=== PATIENT | female | born 1955 | race Caucasian/White ===

== ENCOUNTER 2018-09-15 11:03 | Emergency (ER) | payer SELFPAY ==
[2018-09-15] MEDS ORDERED: Lidocaine 1% w/Epinephrine 1:100K 20 ML VIAL ONE (11:44)
--- NOTE | 2018-09-15 12:22 | CT ---
CT BRAIN NONCONTRAST: HISTORY: 63-year-old female status post acute head trauma due to fall from ladder. FINDINGS: There is no midline shift or any other mass effect. There is no evidence of acute intracranial hemor rhage, large cortical infarct, obstructive hydrocephalus, or extraaxial fluid collection. The calvar ium is intact. IMPRESSION: No acute intracranial findings. jn [] POS: [facility]
[2018-09-15] MEDS ORDERED: Adacel (T-DAP) 0.5 ML VIAL ONE (12:41)
== END 2018-09-15 13:07 | disposition home or self-care (01) ==
LOC: ERS 11:03
DX: S01.01XA Laceration without foreign body of scalp, initial encounter (principal); K21.9 Gastro-esophageal reflux disease without esophagitis; E03.9 Hypothyroidism, unspecified; Z23 Encounter for immunization; W20.8XXA Other cause of strike by thrown, projected or falling object, initial encounter
CPT/HCPCS: 12002; 70450; 90471; 90715; J2001

== ENCOUNTER 2021-12-06 08:43 | Outpatient (CLI) | payer MEDICARE | END 2021-12-06 08:44 | disposition home or self-care (01) | LOC: BICMAMMO 08:43 | PROVIDERS: ATTEND Internal Medicine | DX: Z12.31 Encounter for screening mammogram for malignant neoplasm of breast (principal); Z80.3 Family history of malignant neoplasm of breast; Z98.82 Breast implant status | CPT/HCPCS: 77063; 77067 ==

== ENCOUNTER 2023-01-13 13:19 | Outpatient (CLI) | payer MEDICARE | END 2023-01-13 13:20 | disposition home or self-care (01) | LOC: SCSMRI 13:19 | PROVIDERS: ATTEND Orthopaedic Surgery | DX: S83.511A Sprain of anterior cruciate ligament of right knee, initial encounter (principal); S83.411A Sprain of medial collateral ligament of right knee, initial encounter; S83.241A Other tear of medial meniscus, current injury, right knee, initial encounter; S80.11XA Contusion of right lower leg, initial encounter ==

== ENCOUNTER 2024-02-20 09:10 | Outpatient (CLI) | payer MEDICARE | END 2024-02-20 09:11 | disposition home or self-care (01) | LOC: BICMAMMO 09:10 | DX: Z12.31 Encounter for screening mammogram for malignant neoplasm of breast (principal); Z80.3 Family history of malignant neoplasm of breast; Z98.82 Breast implant status | CPT/HCPCS: 77063; 77067 ==

== ENCOUNTER 2024-04-24 10:35 | Outpatient (CLI) | payer OTHER | END 2024-04-24 10:36 | disposition home or self-care (01) | LOC: BICCT 10:35 | PROVIDERS: ATTEND Internal Medicine | DX: E78.00 Pure hypercholesterolemia, unspecified (principal) | CPT/HCPCS: 75571 ==

== ENCOUNTER 2025-09-03 05:09 | Emergency (ER) | payer MEDICARE ==
[2025-09-03 05:56] LABS: #Basophils 0.06 10x3/uL (0.0-0.2); #Eosinophils 0.16 10x3/uL (0.0-0.7); #Monocytes 0.81 10x3/uL (0.11-0.59); #Neutrophils 9.26 10x3/uL (1.40-6.50); %Basophils 0.5 % (0.0-1.0); %Eosinophils 1.4 % (0.0-10.0); %Lymphocytes 11.8 % (21.0-51.0); %Monocytes 6.9 % (0.0-10.0); %Neutrophils 78.8 % (42.0-75.0); Hematocrit 36.5 % (36.0-47.0); Hemoglobin 12.1 g/dL (12.0-16.0); Mean Corpuscular Hemoglobin 30.0 pg (27.0-31.0); Mean Corpuscular Volume 90.3 fL (78.0-98.0); Platelet Count 347 10x3/uL (130-400); Red Blood Cell (RBC) Count 4.04 mill/uL (4.20-5.40); White Blood Cell (WBC) Count 11.75 10x3/uL (4.8-10.8)
[2025-09-03 06:08] LABS: ALT (SGPT) Less than 7 U/L (Less than 34); AST (SGOT) 24 U/L (11-34); Albumin 3.9 g/dL (3.1-4.5); Alkaline Phosphatase 65 U/L (40-110); Anion Gap 11 mmol/L (10-20); BUN (Urea Nitrogen) 10 mg/dL (9.8-20.1); Bilirubin, Total 0.5 mg/dL (0.3-1.2); Calc. Creatinine Clearance 0 mL/min (70-130); Calcium 9.2 mg/dL (7.8-10.44); Carbon Dioxide 26 mmol/L (23-31); Chloride 104 mmol/L (98-107); Globulin 3.1 g/dL (2.4-3.5); Glucose 102 mg/dL (80-115); Potassium 3.7 mmol/L (3.5-5.1); Sodium 137 mmol/L (136-145)
[2025-09-03] MEDS ORDERED: Mag-Al 1200 mg/1200 mg/30 ML UDCUP ONE (06:50)
[2025-09-03] MEDS ORDERED: Lidocaine Viscous Sol 2% 15 ml UD Cup ONE (06:50)
[2025-09-03] MEDS ORDERED: Famotidine/PF 20 mg/2ml Vial ONE (06:50)
[2025-09-03] MEDS ORDERED: Ondansetron PF 4 MG/2 ML Vial ONE (06:50)
[2025-09-03] MEDS ORDERED: Iopamidol 370 76% 100 ML VIAL ONE (09:23)
== END 2025-09-03 08:14 | disposition home or self-care (01) ==
LOC: ERS 05:09
DX: R10.13 Epigastric pain (principal); D73.89 Other diseases of spleen; E03.9 Hypothyroidism, unspecified; Z79.890 Hormone replacement therapy
CPT/HCPCS: 71045; 74177; 80053; 83690; 84484; 85025; 93005; J1308; J2405; 36415; 96374; 96375

== ENCOUNTER 2025-09-24 08:44 | Outpatient (CLI) | payer MEDICARE ==
[2025-09-24] MEDS ORDERED: Sincalide 5 MCG VIAL ONE (12:17)
[2025-09-24] MEDS ORDERED: Bacteriostatic Normal Saline 30 ML VIAL ONE (12:18)
== END 2025-09-24 08:45 | disposition home or self-care (01) ==
LOC: MRI 08:44
PROVIDERS: ATTEND Physician Assistant Medical
DX: R10.13 Epigastric pain (principal); R63.0 Anorexia; R11.0 Nausea; D73.89 Other diseases of spleen; B96.81 Helicobacter pylori [H. pylori] as the cause of diseases classified elsewhere; K82.8 Other specified diseases of gallbladder
CPT/HCPCS: 74183; 76376; 78227; A9537; J2805